=== PATIENT | male | born 1950 | race Caucasian/White ===

== ENCOUNTER 2017-12-27 06:52 | Day surgery (SDC) | payer OTHER, MEDICARE ==
[2017-12-25 09:33] LABS: Absolute Lymphocytes (CBC) 1.7 K/uL (0.7-4.9); Absolute Monocytes 0.6 K/uL (0.1-1.3); Absolute Neutrophil 10.7 K/uL (1.8-8.0); Basophils % 0.2 % (0-1.3); Eosinophils % 1.8 % (0-4.4); Lymphocytes % 12.7 % (15.3-44.8); MCV 88.5 fL (80-100); MPV 7.5 fL (7.6-11.3); Monocytes % 4.6 % (3.3-12.3); RBC Red Blood Cell Count 4.41 M/uL (4.33-5.43)
[2017-12-25 09:47] LABS: Potassium 4.2 mmol/L (3.5-5.1)
[2017-12-25 09:49] LABS: Albumin 2.8 g/dL (3.4-5.0); Bilirubin Direct 0.1 mg/dL (0-0.2); Bilirubin Total 0.3 mg/dL (0.2-1.0); Protein, Total 7.5 g/dL (6.4-8.2)
--- NOTE | 2017-12-25 10:22 | RAD REPORT ---
EXAM DESCRIPTION: RAD - Chest Pa And Lat (2 Views) - 12/25/2017 9:55 am CLINICAL HISTORY: PRE-OP Chest pain. COMPARISON: Chest Single View dated 02/04/2016 FINDINGS: Linear subsegmental atelectasis is present in the left lung base. No focal infiltrate is s een. The heart is normal in size. No displaced fractures. IMPRESSION: Linear subsegmental atelectasis in the left lung base anteriorly.
--- NOTE | 2017-12-26 00:34 | EKG ---
Test Date: 2017-12-25 Test Time: 09:19:11 Stamping Machine Operator: DAPHNE MEASUREMENT RESULTS: Intervals: Rate: 74 ME: 148 QRSD: 94 QT: 400 QTc: 444 [place]: P: 49 ME: 148 QRS: 62 T: 56 INTERPRETIVE STATEMENTS: Normal sinus rhythm Normal ECG No previous ECG available for comparison Electronically Signed On 12-26-17 00:32:16 CDT by Lucho Garay
[2017-12-27] MEDS ORDERED: CIPROFLOXACIN 400mg IV 0 MG/0 ML BAG IV ONE (07:17)
[2017-12-27] MEDS ORDERED: NA CHLORIDE 0.9% 1,000 ML ONE (07:17)
[2017-12-27] MEDS ORDERED: CIPROFLOXACIN 400mg IV 400 MG/200 ML BAG IV ONE (07:17)
[2017-12-27] MEDS ORDERED: PROPOFOL 200 MG/20 ML VIAL IV ONE (08:08)
[2017-12-27] MEDS ORDERED: GLYCOPYRROLATE 0.2 MG/ML SYR ONE (08:08)
[2017-12-27] MEDS ORDERED: MIDAZOLAM HCL 2 MG/2 ML INJ ONE (08:08)
[2017-12-27] MEDS ORDERED: BUPIVACAINE 0.5% PF 10 ML VIAL ONE (08:09)
[2017-12-27] MEDS ORDERED: FENTANYL CITR 250 MCG/5 ML ONE (08:09)
[2017-12-27] MEDS ORDERED: LIDOCAINE 2% MPF 5 ML VIAL ONE (08:09)
[2017-12-27] MEDS ORDERED: ROCURONIUM 50 MG/5 ML VIAL IV ONE (08:09)
--- OUTSIDE RECORDS SUMMARY | 2017-12-27 08:24 | XMS REPORT | Continuity of Care Document ---
:1950 Author Organization Interface Problems Problem Status Onset Classification Date Comments Source Date Reported Discharge 02/07/2016 [facility] Diagnosis: [facility] subdural hematoma Discharge 02/07/2016 [facility] Diagnosis: 6 [facility]ac[facility] hemorrhage, subarachnoid from trauma ICH Active [facility] 6 Medical Center DM (<span Active Problem 02/21/2016 [facility][id number] [facility]Confirmed[facility]spa [place] n[facility] HTN (<span Active Problem 02/21/2016 [id number] [facility]spa [place] n[facility] Obesity Active Problem 02/21/2016 [facility] Medications Medication Details Route Status Patient Ordering Order Source Instructions Provider Date Keppra 500 mg, 1 Inactive [facility] tab, Route: 016 Medical PO, Drug Center form: TAB, BID, kg, Start date: 02/04/16 21:00:00 CDT, Duration: 30 day, Stop date: 03/05/16 9:00:00 CSTNotes: (Same as:Keppra) Saline Flush 10 ml, Inactive [facility] 0.9% Route: IVP, 016 Medical Drug Form: Center INJ, kg, Q12H, Start date: 02/04/16 21:00:00 CDT, Duration: 30 day, Stop date: 03/05/16 9:00:00 NATURAL RESOURCE MANAGER Levetiracetam 500 mg=1 Active [facility] 500 MG Oral tab, PO, 016 Medical Tablet [Keppra] BID, for 7 Center days., # 14 tab, 0 Refill(s) Glucose 50 MG/ML 1,000 mL, Inactive [facility] / Sodium Rate: 100 016 Medical Chloride 0.0769 ml/hr, Center MEQ/ML Infuse over: Injectable 10 hr, Solution Route: IV, Total Volume: 1,000, Start date: 02/04/16 16:42:00 CDT, Duration: 30 day, Stop date: 03/05/16 16:41:00 NATURAL RESOURCE MANAGER Regular Insulin, 3 unit, Inactive [facility] Human 100 UNT/ML Route: 016 Medical Injectable SUB-Q, PRN, Center Solution kg, PRN Abnormal Lab Result, Start date: 02/04/16 16:29:00 CDT, Duration: 30 day, Stop date: 03/05/16 15:28:00 NATURAL RESOURCE MANAGER Dextrose 50% 50 mL, Inactive [facility] Syringe Route: IVP, 016 Medical kg, PRN, PRN Center Abnormal Lab Result, Start date: 02/04/16 16:29:00 CDT, Duration: 30 day, Stop date: 03/05/16 15:28:00 NATURAL RESOURCE MANAGER Ondansetron 4 mg, Route: Inactive [facility] IVP, Q8H, 016 Medical kg, PRN Center Nausea & Vomiting, Start date: 02/04/16 16:29:00 CDT, Duration: 30 day, Stop date: 03/05/16 16:28:00 NATURAL RESOURCE MANAGER Acetaminophen 1 tab, Inactive [place] 325 MG / Route: PO, 016 Medical Hydrocodone kg, Q4H, PRN Center Bitartrate 5 MG Pain Score Oral Tablet 1-3, Start date: 02/04/16 16:29:00 CDT, Duration: 30 day, Stop date: 03/05/16 16:28:00 NATURAL RESOURCE MANAGER Acetaminophen 1 tab, Inactive [facility] 325 MG / Route: PO, 016 Medical Hydrocodone kg, Q4H, PRN Center Bitartrate 10 MG Pain Score Oral Tablet 4-6, Start date: 02/04/16 16:29:00 CDT, Duration: 30 day, Stop date: 03/05/16 16:28:00 NATURAL RESOURCE MANAGER Saline Flush 10 ml, Inactive [facility] 0.9% Route: IVP, 016 Medical Drug Form: Center INJ, kg, PRN, PRN Line Flush, Start date: 02/04/16 16:29:00 CDT, Duration: 30 day, Stop date: 03/05/16 15:28:00 NATURAL RESOURCE MANAGER Levetiracetam 500 mg, Inactive [facility] Route: IVPB, 016 Medical ONCE, kg, Center Start date: 02/04/16 16:29:00 CDT, Stop date: 02/04/16 16:29:00 CDT Sodium Chloride 1,000 mL, Inactive [facility] 0.154 MEQ/ML Rate: 50 016 Medical Injectable ml/hr, [place] Solution Infuse over: 20 hr, Route: IV, Total Volume: 1,000, Start date: 02/04/16 16:29:00 CDT, Duration: 30 day, Stop date: 03/05/16 16:28:00 NATURAL RESOURCE MANAGER Keppra 1,000 mg, Inactive [facility] Route: IV, 016 Medical ONCE, kg, Center Start date: 02/04/16 15:33:00 CDT, Stop date: 02/04/16 15:33:00 CDTNotes: Same as Keppra Mix with 100 mL NS, LR or D5W MEDICATION WASTE Product Size: 500 mg Product Wasted: _0__ mg Allergies, Adverse Reactions, Alerts Substance Category Reaction Severity Reaction Status Date Comments Source type Reported penicillins Assertion Drug Active [facility] allergy [place] Immunizations Immunization Date Given Site Status Last Updated Comments Source Results Order Name Results Value Reference Date Interpretation Comments Source Range Brain wo Brain wo EXAM: CT BRAIN WITHOUT CONTRAST 02/17 - [facility] contrast CT contrast CT /2015 - [place] INDICATION: S06.5X0A Traumatic subdural hemorrhage without loss of consciousness, initial encounter Read by: Jana Toro MD Dictated Date/time: 02/18/16 13:21 Electronically Signed by: Jana Toro MD 02/18/16 13:25 FINAL REPORT COMPARISON: 02/04/2016 TECHNIQUE: Routine axial CT images of the brain were obtained. DISCUSSION: Interval resolution of previously demonstrated trace parafalcine subdural and subarachnoid hemorrhages. No interval new hemorrhage. No mass effect. No acute infarction. No hydrocephalus. Paranasal sinuses and mastoid air cells are clear. IMPRESSION: Interval resolution of previously noted trace extra-axial hemorrhages. No interval new hemorrhage. No hydrocephalus. CHEM PANEL Total 6.8 g/dL 6.4 - 8.4 02/03 [facility] CHEM PANEL Albumin Lvl 3.7 g/dL 3.5 - 5.0 02/03 [facility] CHEM PANEL Bili Total 0.6 mg/dL 0.2 - 1.3 02/03 [facility] CHEM PANEL Alk Phos 77 unit/L 39 - 136 02/03 [facility] CHEM PANEL ALT 47 unit/L 0 - 65 02/03 [facility] CHEM PANEL AST 25 unit/L 0 - 37 02/03 [facility] CHEM PANEL eGFR 45 02/03 Result Comment: The eGFR is calculated using the CKD-EPI formula. In most young, healthy individuals the eGFR will be >90 mL/ min/1.73m2. The eGFR declines with age. An eGFR of 60-89 may be normal in mL/min/1.73 some populations, particularly the elderly, for whom the CKD-EPI formula has not been extensively validated. Use of the eGFR is not recommended in the following populations: [place] [address] [facility] Individuals with unstable creatinine concentrations, including patients and those with serious co-morbid conditions. Patients with extremes in muscle mass or diet. The data above are obtained from the National Kidney Disease Education Program (NKDEP) which additionally recommends that when the eGFR is used in patients with extremes of body mass index for purposes of drug dosing, the eGFR should be multiplied by the estimated BMI. CHEM PANEL Chloride Lvl 109 meq/L 95 - 109 02/03 [facility] CHEM PANEL Potassium 4.4 meq/L 3.5 - 5.1 02/03 [facility] Lvl [facility] CHEM PANEL Calcium Lvl 8.5 mg/dL 8.5 - 10.5 02/03 [facility] CHEM PANEL Sodium Lvl 143 meq/L 135 - 145 02/03 [facility] CHEM PANEL CO2 24 meq/L 24 - 32 02/03 [facility] CHEM PANEL BUN 28 mg/dL 7 - 22 02/03 [facility] CHEM PANEL Creatinine 1.58 mg/dL 0.50 - 02/03 [facility] Lvl 1.40 [facility] CHEM PANEL Glucose Lvl 142 mg/dL 70 - 99 02/03 [facility] CHEM PANEL A/G Ratio 1.2 0.7 - 1.6 02/03 [facility] CHEM PANEL Globulin 3.1 g/dL 2.7 - 4.2 02/03 [facility] CHEM PANEL AGAP 14.4 meq/L 10.0 - 02/03 [place] 20.0 [facility] CHEM PANEL B/C Ratio 18 6 - 25 02/03 [facility] HEMATOLOGY Lymphocytes 1.8 K/CMM 1.0 - 5.5 02/03 [facility] HEMATOLOGY Basophils # 0.1 K/CMM 0.0 - 0.2 02/03 [facility] HEMATOLOGY Eosinophils 0.2 K/CMM 0.0 - 0.5 02/03 [facility] HEMATOLOGY Monocytes # 0.6 K/CMM 0.0 - 0.8 02/03 [facility] HEMATOLOGY Segs 74.9 % 45.0 - 02/03 [place] 75.0 [facility] HEMATOLOGY Lymphocytes 17.5 % 20.0 - 02/03 [place] 40.0 [facility] HEMATOLOGY Segs-Bands # 7.8 K/CMM 1.5 - 8.1 02/03 [facility] HEMATOLOGY Monocytes 5.4 % 2.0 - 12.0 02/03 [facility] HEMATOLOGY Basophils 0.5 % 0.0 - 1.0 02/03 [facility] HEMATOLOGY Eosinophils 1.7 % 0.0 - 4.0 02/03 [facility] HEMATOLOGY MPV 9.1 fL 7.4 - 10.4 02/03 [facility] HEMATOLOGY Platelet 179 K/CMM 133 - 450 02/03 [facility] HEMATOLOGY RDW 13.1 % 11.5 - 02/03 [place] 14.5 [facility] HEMATOLOGY MCH 29.5 pg 27.0 - 02/03 [place] 31.0 [facility] HEMATOLOGY MCHC 33.7 g/dL 32.0 - 02/03 [place] 36.0 [facility] HEMATOLOGY RBC 4.69 M/CMM 4.70 - 02/03 [place] 6. [facility] HEMATOLOGY Hgb 13.8 g/dL 14.0 - 02/03 [place] 18.0 2016 [facility] HEMATOLOGY WBC 10.4 K/CMM 3.7 - 10.4 02/03 [facility] HEMATOLOGY Hct 41.1 % 42.0 - 02/03 [place] 54.0 /2016 [facility] HEMATOLOGY MCV 87.6 fL 80.0 - 02/03 [place] 94.0 /2016 [facility] HEMATOLOGY PT 13.2 s 12.0 - 02/03 [place] 14.7 /2016 [facility] HEMATOLOGY INR 0.98 0.85 - 02/03 [place] 1.17 /2016 [facility] Brain wo Brain wo EXAM: CT BRAIN WITHOUT CONTRAST 02/03 [facility] contrast CT contrast CT /2015 - [facility] INDICATION: Bleeding, transfer for intracranial hemorrhage Read by: Jana Toro MD Dictated Date/time: 02/04/16 16:13 Electronically Signed by: Jana Toro MD 02/04/16 16:19 FINAL REPORT COMPARISON: Exam on the same day from outside hospital TECHNIQUE: Routine axial CT images of the brain were obtained. DISCUSSION: Suggestion of trace parafalcine subdural and subarachnoid hemorrhage is unchanged. No interval new hemorrhage. No mass effect. No hydrocephalus. No acute infarction. No acute fracture. IMPRESSION: Trace parafalcine subdural and adjacent subarachnoid hemorrhages are unchanged. No interval new hemorrhage. No mass effect. Brain-Outsi Brain-Outsid EXAM: CT BRAIN 02/03 [facility] de Consult e Consult CT - [facility] CT Center DATE: 02/04/2016 Read by: Ester Romero MD Dictated Date/time: 02/04/16 15:22 Electronically Signed by: Ester Romero MD 02/04/16 15:24 FINAL REPORT CLINICAL INFORMATION: Outside consult COMPARISON: None TECHNIQUE: Axial images of the brain were obtained from the skull base through the vertex without contrast material administration. DISCUSSION: The density of the brain parenchyma is unremarkable. No hydrocephalus, midline shift or mass effect. No acute hemorrhage. No bony lesions. Trace mucosal thickening within the right maxillary sinus. IMPRESSION: No acute intracranial abnormality. Spine-Outsi Spine-Outsid EXAM: CT CERVICAL SPINE WITHOUT CONTRAST 02/03 [facility] de Consult e Consult CT - [facility] CT This report was dictated by a Wildlife Conservation Officer/Fellow. I have personally reviewed the images as Center well as the Resident's interpretation and agree with the findings. DATE: 02/04/2016 at 0908 hours INDICATION: Second read on side hospital study. Read by: Terrance Morin MD Resident: Terrance Morin MD Dictated Date/time: 02/04/16 16:24 Electronically Signed by: Moy Sorensen MD 02/04/16 17:47 FINAL REPORT COMPARISON: None. TECHNIQUE: Examination performed at outside hospital. FINDINGS: The spine is imaged from the skull base to the level of T2. No acute fracture or malalignment is identified. Low-grade vertebral body hemangiomas seen at the right C7 vertebral body extending partially to the right pedicle. Moderate to severe multilevel disc spa ce narrowing is seen from C3-C6, with large anterior endplate osteophytes at C4-C5 and C5-C6. Small posterior endplate osteophytes are seen at C3-C4, without spinal canal encroachment. No soft tissue abnormality is identified. IMPRESSION: 1. No acute abnormality of the cervical spine. 2. Moderate to severe degenerative disc disease from C3 to C6. 3. Low-grade vertebral body hemangioma at the right C7 vertebral body. 4. The second opinion report generally concurs with the original outside report. Vital Signs Vital Sign Value Date Comments Source Systolic (mm Hg) 154 02/04/2016 [facility] Diastolic (mm Hg) 88 02/04/2016 [facility] Temperature Oral (F) 98.0 F 02/04/2016 [facility] Respitory Rate 16 02/04/2016 [facility] Systolic (mm Hg) 121 02/04/2016 [facility] Diastolic (mm Hg) 71 02/04/2016 [facility] Respitory Rate 20 02/04/2016 [facility] Respitory Rate 18 02/04/2016 [facility] Heart Rate 86 02/04/2016 [facility] Systolic (mm Hg) 158 02/04/2016 [facility] Diastolic (mm Hg) 88 02/04/2016 [facility] Temperature Oral (F) 98.2 F 02/04/2016 [facility] Encounters Location Location Encounter Encounter Reason Attending ADM DC Status Source Details Type Number For Provider Date Date [id number] [id number] TRAUMA 02/17 Active [facility] Out[facility] Diag [id number] [place] 02/17 02/18 [facility] [place] /2015 [facility] Procedures Procedure Code Date Perfomer Comments Source
[2017-12-27] MEDS ORDERED: EPHEDRINE SULF 50 MG/10 ML SYR ONE (08:46)
--- NOTE | 2017-12-27 09:42 | P.BOP ---
Preoperative diagnosis: acute cholecystitis, symptomatic cholelithiasisi Postoperative diagnosis: same Primary procedure: Laparoscopic cholecystectomy Estimated blood loss: <10cc Specimen: gb Findings: as above Anesthesia: General Complications: None Transferred to: Recovery Room Condition: Good
[2017-12-27] MEDS ORDERED: MEPERIDINE HCL 50 MG/ML AMP ONE (10:13)
[2017-12-27] MEDS ORDERED: NA CHLORIDE 0.9% 500 ML ONE (10:13)
[2017-12-27] MEDS ORDERED: CODEINE 30MG/APAP 300MG TAB ONE (11:04)
--- NOTE | 2017-12-27 20:50 | DS ---
Date of Discharge: 12/27/2017 Diagnoses: Acute cholecystitis, symptomatic cholelithiasis. Procedure: Laparoscopic cholecystectomy. Disposition: Home. Activity as tolerated. No heavy lifting. Followup in my office in 1 week. Roly lim for appointment [phone]. Keep the area dry for 48 hours, then may shower, keep the Steri-Strip in tact. For medications, see orders. TRACY/VENKATESH Voice ID: [id number] Report ID: [id number]
--- NOTE | 2017-12-27 20:50 | OP ---
Date of Procedure: 12/27/2017 Surgeon: Canelo Vilchis MD Preoperative Diagnoses: Acute cholecystitis symptomatic cholelithiasis. Postoperative Diagnoses: Acute cholecystitis symptomatic cholelithiasis. Procedure: Laparoscopic cholecystectomy. Anesthesia: General plus local. Indications: This is the case of a male, who comes to us with acute cholecystitis, symptomatic nirmal lithiasis, sent to us by the packing and final assembly supervisor for cholecystectomy. He is still working on a liver cyst and some other pathology by the packing and final assembly supervisor, but they want the gallbladder out. The bene fits, alternatives, and risks of laparoscopic, possible open cholecystectomy fully explained to the p atient, which include but are not limited to infection, bleeding, damage to adjacent structures, anes thesia complication, choledocholithiasis, bile leak, pancreatitis, VT, and even . He also under stands this might not relieve any symptoms. He might need more than one surgical intervention. He u nderstood, signed a consent. Description Of Procedure: The patient was brought to the operating room and placed in the supine pos ition. Anesthesia was done without complication. Abdominal area was prepped and draped in a sterile fashion. Marcaine 0.5% injected for local anesthetic, followed by sharp incision of the skin in the infraumbilical region. Incision was carried down to fascia, which was opened under direct vision. Peritoneum was encountered, opened under direct vision. Vicryl #1 placed inside of the fascia. Alberto on trocar was carefully introduced. Pneumoperitoneum was obtained. After that, 3 more trocars were placed under direct vision in the right upper quadrant. This allowed us to put a grasper in the fund us of the gallbladder, another grasper in the infundibulum, and gallbladder was retracted in the infe rolateral fashion exposing the triangle of Calot and obtaining critical view of safety. The cystic d uct and cystic artery were clearly isolated free circumferentially and a connection between those and the gallbladder were clearly identified. I proceeded to ligate those by using at least 3 clips prox imal, 1 clip distal, ligation in the middle. Same was done with the cystic artery. No bile leak. N o bleeding. The gallbladder was removed from liver using Bovie cauterizer and removed from abdominal cavity using EndoCatch through the umbilical incision. The area was inspected once again. No bile leak. No bleeding. Gallbladder fossa was intact. At that moment, I proceeded to remove the trocars under direct vision. Deflated pneumoperitoneum. Closed the fascia with #1 Vicryl, irrigated the young bcu incision, closed that with 3-0 chromic, and the skin in a subcuticular fashion with 3-0 chromic a nd Steri-Strips on top. Sponge count and instrument counts were correct. The patient tolerated the procedure well. The patient was sent to Recovery in stable condition. TRACY/VENKATESH Voice ID: [id number] Report ID: [id number]
== END 2017-12-27 12:12 | disposition home or self-care (01) ==
LOC: OR 06:52
PROVIDERS: ATTEND Surgery
PROC: 0FT44ZZ Resection of Gallbladder, Percutaneous Endoscopic Approach (ICD-10-PCS; principal; 2017-12-27 08:30)
DX: K80.12 Calculus of gallbladder with acute and chronic cholecystitis without obstruction (principal); K76.89 Other specified diseases of liver; K76.9 Liver disease, unspecified; E11.9 Type 2 diabetes mellitus without complications; I10 Essential (primary) hypertension; E78.00 Pure hypercholesterolemia, unspecified; Z88.0 Allergy status to penicillin; Z82.49 Family history of ischemic heart disease and other diseases of the circulatory system
CPT/HCPCS: 36415; 47562; 71046; 80048; 80076; 82150; 82962 ×2; 83690; 85025; 88304; 93005; J0744; J2175; J2250; J7030

== ENCOUNTER 2018-01-02 15:49 | Observation (INO) | payer OTHER, MEDICARE ==
--- OUTSIDE RECORDS SUMMARY | 2018-01-02 16:14 | XMS REPORT | Continuity of Care Document ---
:1950 Author Organization Interface Problems Problem Status Onset Classification Date Comments Source Date Reported Discharge 02/07/2016 [facility] Diagnosis: 6 [facility] subdural hematoma Discharge 02/07/2016 [facility] Diagnosis: 6 Medical Intracranial Center hemorrhage, subarachnoid from trauma ICH Active [facility] 6 Medical Center DM (<span Active Problem 02/21/2016 [id number] [facility]Confirmed[facility]spa [place] n[facility] HTN (<span Active Problem 02/21/2016 [id number] [facility]a [place] n[facility] Obesity Active Problem 02/21/2016 OP[facility] Romero Medications Medication Details Route Status Patient Ordering Order Source Instructions Provider Date Keppra 500 mg, 1 Inactive [facility] tab, Route: 016 Medical PO, Drug Center form: TAB, BID, kg, Start date: 02/04/16 21:00:00 CDT, Duration: 30 day, Stop date: 03/05/16 9:00:00 CSTNotes: (Same as:Keppra) Saline Flush 10 ml, Inactive [facility] 0.9% Route: IVP, 016 Medical Drug Form: Center INJ, kg, Q12H, Start date: 02/04/16 21:00:00 CDT, Duration: 30 day, Stop date: 03/05/16 9:00:00 GUEST EXPERIENCE MANAGER Levetiracetam 500 mg=1 Active [facility] 500 MG Oral tab, PO, 016 Medical Tablet [Keppra] BID, for 7 Center days., # 14 tab, 0 Refill(s) Glucose 50 MG/ML 1,000 mL, Inactive [facility] / Sodium Rate: 100 016 Medical Chloride 0.0769 ml/hr, Center MEQ/ML Infuse over: Injectable 10 hr, Solution Route: IV, Total Volume: 1,000, Start date: 02/04/16 16:42:00 CDT, Duration: 30 day, Stop date: 03/05/16 16:41:00 GUEST EXPERIENCE MANAGER Regular Insulin, 3 unit, Inactive [facility] Human 100 UNT/ML Route: 016 Medical Injectable SUB-Q, PRN, Center Solution kg, PRN Abnormal Lab Result, Start date: 02/04/16 16:29:00 CDT, Duration: 30 day, Stop date: 03/05/16 15:28:00 GUEST EXPERIENCE MANAGER Dextrose 50% 50 mL, Inactive [facility] Syringe Route: IVP, 016 Medical kg, PRN, PRN Center Abnormal Lab Result, Start date: 02/04/16 16:29:00 CDT, Duration: 30 day, Stop date: 03/05/16 15:28:00 GUEST EXPERIENCE MANAGER Ondansetron 4 mg, Route: Inactive [facility] IVP, Q8H, 016 Medical kg, PRN Center Nausea & Vomiting, Start date: 02/04/16 16:29:00 CDT, Duration: 30 day, Stop date: 03/05/16 16:28:00 GUEST EXPERIENCE MANAGER Acetaminophen 1 tab, Inactive [place] 325 MG / Route: PO, 016 Medical Hydrocodone kg, Q4H, PRN Center Bitartrate 5 MG Pain Score Oral Tablet 1-3, Start date: 02/04/16 16:29:00 CDT, Duration: 30 day, Stop date: 03/05/16 16:28:00 GUEST EXPERIENCE MANAGER Acetaminophen 1 tab, Inactive [facility] 325 MG / Route: PO, 016 Medical Hydrocodone kg, Q4H, PRN Center Bitartrate 10 MG Pain Score Oral Tablet 4-6, Start date: 02/04/16 16:29:00 CDT, Duration: 30 day, Stop date: 03/05/16 16:28:00 GUEST EXPERIENCE MANAGER Saline Flush 10 ml, Inactive [facility] 0.9% Route: IVP, 016 Medical Drug Form: Center INJ, kg, PRN, PRN Line Flush, Start date: 02/04/16 16:29:00 CDT, Duration: 30 day, Stop date: 03/05/16 15:28:00 GUEST EXPERIENCE MANAGER Levetiracetam 500 mg, Inactive [facility] Route: IVPB, 016 Medical ONCE, kg, Center Start date: 02/04/16 16:29:00 CDT, Stop date: 02/04/16 16:29:00 CDT Sodium Chloride 1,000 mL, Inactive [facility] 0.154 MEQ/ML Rate: 50 016 Medical Injectable ml/hr, [place] Solution Infuse over: 20 hr, Route: IV, Total Volume: 1,000, Start date: 02/04/16 16:29:00 CDT, Duration: 30 day, Stop date: 03/05/16 16:28:00 GUEST EXPERIENCE MANAGER Keppra 1,000 mg, Inactive [facility] Route: IV, 016 Medical ONCE, kg, Center Start date: 02/04/16 15:33:00 CDT, Stop date: 02/04/16 15:33:00 CDTNotes: Same as Keppra Mix with 100 mL NS, LR or D5W MEDICATION WASTE Product Size: 500 mg Product Wasted: _0__ mg Allergies, Adverse Reactions, Alerts Substance Category Reaction Severity Reaction Status Date Comments Source type Reported penicillins Assertion Drug Active [facility] allergy [place] Immunizations Immunization Date Given Site Status Last Updated Comments Source Results Order Name Results Value Reference Date Interpretation Comments Source Range Brain wo Brain wo EXAM: CT BRAIN WITHOUT CONTRAST 02/17 - [facility] contrast CT contrast CT /2015 - [facility] INDICATION: S06.5X0A Traumatic subdural hemorrhage without loss [...] Total 6.8 g/dL 6.4 - 8.4 02/03 [facility] CHEM PANEL Albumin Lvl 3.7 g/dL 3.5 - 5.0 02/03 [facility] CHEM PANEL Bili Total 0.6 mg/dL 0.2 - 1.3 02/03 [facility] CHEM PANEL Alk Phos 77 unit/L 39 - 136 02/03 [facility] CHEM PANEL ALT 47 unit/L 0 - 65 02/03 [facility] CHEM PANEL AST 25 unit/L 0 - 37 02/03 [facility] CHEM PANEL eGFR 45 02/03 Result [...] is not recommended in the following populations: [place] [id number] Center Individuals with unstable creatinine concentrations, including [...] Lvl 109 meq/L 95 - 109 02/03 [facility] CHEM PANEL Potassium 4.4 meq/L 3.5 - 5.1 02/03 [facility] Lvl [facility] CHEM PANEL Calcium Lvl 8.5 mg/dL 8.5 - 10.5 02/03 [facility] CHEM PANEL Sodium Lvl 143 meq/L 135 - 145 02/03 [facility] CHEM PANEL CO2 24 meq/L 24 - 32 02/03 [facility] CHEM PANEL BUN 28 mg/dL 7 - 22 02/03 [facility] CHEM PANEL Creatinine 1.58 mg/dL 0.50 - 02/03 [facility] Lvl 1.40 [facility] CHEM PANEL Glucose Lvl 142 mg/dL 70 - 99 02/03 [facility] CHEM PANEL A/G Ratio 1.2 0.7 - 1.6 02/03 [facility] CHEM PANEL Globulin 3.1 g/dL 2.7 - 4.2 02/03 [facility] CHEM PANEL AGAP 14.4 meq/L 10.0 - 02/03 [place] 20.0 [facility] CHEM PANEL B/C Ratio 18 6 - 25 02/03 [facility] HEMATOLOGY Lymphocytes 1.8 K/CMM 1.0 - 5.5 02/03 [facility] HEMATOLOGY Basophils # 0.1 K/CMM 0.0 - 0.2 02/03 [facility] HEMATOLOGY Eosinophils 0.2 K/CMM 0.0 - 0.5 02/03 [facility] HEMATOLOGY Monocytes # 0.6 K/CMM 0.0 - 0.8 02/03 [facility] HEMATOLOGY Segs 74.9 % 45.0 - 02/03 [place] 75.0 [facility] HEMATOLOGY Lymphocytes 17.5 % 20.0 - 02/03 [place] 40.0 [facility] HEMATOLOGY Segs-Bands # 7.8 K/CMM 1.5 - 8.1 02/03 [facility] HEMATOLOGY Monocytes 5.4 % 2.0 - 12.0 02/03 [facility] HEMATOLOGY Basophils 0.5 % 0.0 - 1.0 02/03 [facility] HEMATOLOGY Eosinophils 1.7 % 0.0 - 4.0 02/03 [facility] HEMATOLOGY MPV 9.1 fL 7.4 - 10.4 02/03 [facility] HEMATOLOGY Platelet 179 K/CMM 133 - 450 02/03 [facility] HEMATOLOGY RDW 13.1 % 11.5 - 02/03 [place] 14.5 [facility] HEMATOLOGY MCH 29.5 pg 27.0 - 02/03 [place] 31.0 [facility] HEMATOLOGY MCHC 33.7 g/dL 32.0 - 02/03 [place] 36.0 [facility] HEMATOLOGY RBC 4.69 M/CMM 4.70 - 02/03 [place] 6. [facility] HEMATOLOGY Hgb 13.8 g/dL 14.0 - 02/03 [place] 18.0 2016 [facility] HEMATOLOGY WBC 10.4 K/CMM 3.7 - 10.4 02/03 [facility] HEMATOLOGY Hct 41.1 % 42.0 - 02/03 [place] 54.0 /2016 [facility] HEMATOLOGY MCV 87.6 fL 80.0 - 02/03 [place] 94.0 /2016 [facility] HEMATOLOGY PT 13.2 s 12.0 - 02/03 [place] 14.7 /2016 [facility] HEMATOLOGY INR 0.98 0.85 - 02/03 [place] 1.17 /2016 [facility] Brain wo Brain wo EXAM: CT BRAIN WITHOUT CONTRAST 02/03 [facility] contrast CT contrast CT /2015 - [facility] INDICATION: Bleeding, transfer for intracranial hemorrhage [...] effect. Brain-Outsi Brain-Outsid EXAM: CT BRAIN 02/03 [facility] de Consult e Consult CT - [facility] CT Center DATE: 02/04/2016 Read by: [...] EXAM: CT CERVICAL SPINE WITHOUT CONTRAST 02/03 [facility] de Consult e Consult CT - [facility] CT This report was dictated by a Solar Systems Designer/Fellow. I have personally reviewed the images as [...] Comments Source Systolic (mm Hg) 154 02/04/2016 [facility] Diastolic (mm Hg) 88 02/04/2016 [facility] Temperature Oral (F) 98.0 F 02/04/2016 [facility] Respitory Rate 16 02/04/2016 [facility] Systolic (mm Hg) 121 02/04/2016 [facility] Diastolic (mm Hg) 71 02/04/2016 [facility] Respitory Rate 20 02/04/2016 [facility] Respitory Rate 18 02/04/2016 [facility] Heart Rate 86 02/04/2016 [facility] Systolic (mm Hg) 158 02/04/2016 [facility] Diastolic (mm Hg) 88 02/04/2016 [facility] Temperature Oral (F) 98.2 F 02/04/2016 [facility] Encounters Location Location Encounter Encounter Reason Attending ADM DC Status Source Details Type Number For Provider Date Date [facility] [id number] [id number] TRAU[place] 02/17 Active [facility] Out[facility] Diag [id number] Abdifatah 02/17 02/18 [facility] [place] [facility] Procedures Procedure Code Date Perfomer Comments Source
[2018-01-02] MEDS ORDERED: ACETAMINOPHEN 500 MG TAB PO PRN (16:38)
[2018-01-02] MEDS ORDERED: ONDANSETRON 4 MG/2 ML VIAL IV PRN (16:38)
[2018-01-02] MEDS ORDERED: PIPER/TAZO/NS 3.375gm 3.375 GM/100 ML BAG IV SCH (17:00)
[2018-01-02] MEDS ORDERED: ENOXAPARIN 40 MG/0.4 ML SQ SCH (17:00)
--- NOTE | 2018-01-02 17:14 | P.HP ---
Certification for Inpatient Patient admitted to: Observation With expected LOS: <2 Midnights Patient will require the following post-hospital care: None Practitioner: I am a practitioner with admitting privileges, knowledge of patient current condition, hospital course, and medical plan of care. Services: Services provided to patient in accordance with Admission requirements found in Title 42 Section 412.3 of the Code of Federal Regulations Patient History Date of Service: 01/02/18 Primary Care Provider: Unknown Reason for admission: Possible Aspiration PNA History of Present Illness: 64 y/o M with H/o HTN, HLP and Type 2 DM who was directly admitted to the hospital by GI post colonoscopy. Pt had colonscopy done and aspirated on self post procedure. Pt was initially SOB and had oxygen saturation <80% on 2L NC. He was thus Admitted for possible Aspiration PNA and SOB. Pt did have 4 polyp removed and tolerated the procedure well untill he had vomiting post procedure. No other complains to offer at this time. Pt was recently discharged from hospital after having Lap nirmal by Dr Vilchis Allergies Penicillins Allergy (Verified 01/02/18 17:05) childhood reaction unknown Home Medications: Aspirin [Aspirin EC 81 MG] 81 mg PO DAILY 12/26/17 Atorvastatin Calcium [Lipitor] 20 mg PO BEDTIME 12/26/17 Cholecalciferol (Vitamin D3) [Vitamin D 1000 Iu Tab] 2,000 unit PO DAILY Fish Oil/Dha/Epa [Fish Oil 1,200 mg Fish Oil] 1 each PO BID 12/26/17 Glipizide [Glipizide ER] 10 mg PO BID 12/26/17 Levofloxacin [Levaquin] 500 mg PO DAILY 12/26/17 Metformin HCl [Glucophage] 500 mg PO BIDWM 12/26/17 Metoprolol Tartrate [Lopressor] 50 mg PO BID 12/26/17 Omeprazole [Prilosec] 40 mg PO DAILY 12/26/17 Terazosin HCl [Hytrin] 1 mg PO BID 12/26/17 Vit A/Vit C/Vit E/Zinc/Copper [Icaps Areds Formula Tablet] 1 each PO BID Ciprofloxacin HCl [Cipro 500 MG Tablet] 500 mg PO BID #10 tab 12/27/17 Codeine/APAP [Tylenol W/Codeine #3 tab] 1 tab PO Q4HP PRN #30 tab 12/27/17 Review of Systems 10-point ROS is otherwise unremarkable Physical Examination - Physical Exam General: Alert, In no apparent distress HEENT: Atraumatic, PERRLA, Mucous membr. moist/pink, EOMI, Sclerae nonicteric Neck: Supple, 2+ carotid pulse no bruit, No LAD, Without JVD or thyroid abnormality Respiratory: Clear to auscultation bilaterally, Normal air movement Cardiovascular: Regular rate/rhythm, Normal S1 S2 Gastrointestinal: Normal bowel sounds, No tenderness Musculoskeletal: No tenderness Integumentary: No rashes Neurological: Normal gait, Normal speech, Normal strength at 5/5 x4 extr, Normal tone, Normal affect Lymphatics: No axilla or inguinal lymphadenopathy Assessment and Plan - Plan Assessment and plan: 1. Possible Aspiration PNA post Colonoscopy - IV clindamycin for now - Will get CBC, CMP, Xray of the chest - Will f.u with lab and imaging 2. S.P Colonoscopy - Stable, - S/p 4 Polypectomy - Monitor H.H 3. HTN 4. HLP 5. Type 2 DM Dispo: Admit to medical surgical for 24hrs Observation Discharge Plan: Home Plan to discharge in: 24 Hours - Advance Directives Does patient have a Living Will: No Does patient have a Durable POA for Healthcare: No - Code Status/Comfort Care Code Status Assessed: Yes Critical Care: No
[2018-01-02] MEDS ORDERED: D50W 25 GM/50 ML SYRINGE IV PRN (17:16)
[2018-01-02] MEDS ORDERED: GLUCAGON 1 MG/VIAL IM PRN (17:16)
--- NOTE | 2018-01-02 17:34 | RAD REPORT ---
EXAM DESCRIPTION: Yazimn Single View01/02/2018 5:22 pm CLINICAL HISTORY: Chest pain COMPARISON: December 25, 2017 FINDINGS: Alveolar opacities have developed within the left lung base. Mild medial right basilar opa cities are suspected The heart is normal size IMPRESSION: Left basilar alveolar opacities with mild opacities in the medial right base consistent with pneumonia/aspiration
[2018-01-02] MEDS: CLINDAMYCIN INJ 600 MG in NA CHLORIDE 0.9% 50 ML IV SCH (18:13)
[2018-01-02] MEDS: NA CHLORIDE 0.9% 1,000 ML IV SCH ×2 (18:13→20:53)
[2018-01-02] MEDS: PANTOPRAZOLE 40MG TABLET PO SCH (18:13)
[2018-01-02 18:19] LABS: Albumin 3.1 g/dL (3.4-5.0); Bilirubin Total 0.4 mg/dL (0.2-1.0); Potassium 4.1 mmol/L (3.5-5.1); Protein, Total 7.5 g/dL (6.4-8.2)
[2018-01-02 18:21] LABS: Absolute Lymphocytes (CBC) 0.7 K/uL (0.7-4.9); Absolute Monocytes 1.1 K/uL (0.1-1.3); Absolute Neutrophil 26.2 K/uL (1.8-8.0); Basophils % 0.2 % (0-1.3); Eosinophils % 0.5 % (0-4.4); Hematocrit 41.3 % (39.6-49.0); Lymphocytes % 2.6 % (15.3-44.8); MCH 29.1 pg (27.0-35.0); MCV 87.6 fL (80-100); MPV 8.1 fL (7.6-11.3); Monocytes % 3.9 % (3.3-12.3); RBC Red Blood Cell Count 4.71 M/uL (4.33-5.43)
[2018-01-02 19:09] LABS: Blood Morphology Comment NOT SEEN (NOT SEEN); Platelet Estimate ADEQ; Toxic Granulation 1+
[2018-01-02] MEDS: INSULIN -REGULAR HUMAN 50 UNIT/0.5 ML ML SQ SCH (20:36)
[2018-01-02] MEDS: ATORVASTATIN 20 MG TAB PO SCH (20:50)
[2018-01-02] MEDS: METOPROLOL TAR 50 MG TAB PO SCH (20:51)
[2018-01-02] MEDS: TERAZOSIN HCL 1 MG CAP PO SCH (20:52)
[2018-01-02] MEDS ORDERED: PNEUMOCOCCAL VACCINE 0.5 ML IMVAC ONE (21:00)
[2018-01-03] MEDS: CLINDAMYCIN INJ 600 MG in NA CHLORIDE 0.9% 50 ML IV SCH ×2 (00:12→09:00)
[2018-01-03 05:19] LABS: Absolute Lymphocytes (CBC) 1.5 K/uL (0.7-4.9); Absolute Neutrophil 19.1 K/uL (1.8-8.0); Basophils % 0.1 % (0-1.3); Eosinophils % 0.3 % (0-4.4); Hematocrit 34.8 % (39.6-49.0); MCH 29.7 pg (27.0-35.0); MCV 86.5 fL (80-100); MPV 8.4 fL (7.6-11.3); Monocytes % 4.5 % (3.3-12.3); RBC Red Blood Cell Count 4.02 M/uL (4.33-5.43)
[2018-01-03 05:46] LABS: Albumin 2.7 g/dL (3.4-5.0); Bilirubin Total 0.5 mg/dL (0.2-1.0); Magnesium 2.1 mg/dL (1.8-2.4); Phosphorus 4.9 mg/dL (2.5-4.9); Potassium 3.9 mmol/L (3.5-5.1); Protein, Total 6.5 g/dL (6.4-8.2)
[2018-01-03] MEDS ORDERED: POTASSIUM 25 MEQ EFFERV TAB PO ONE (07:05)
[2018-01-03] MEDS: PANTOPRAZOLE 40MG TABLET PO SCH (07:30)
[2018-01-03] MEDS: INSULIN -REGULAR HUMAN 50 UNIT/0.5 ML ML SQ SCH ×4 (07:30→21:00)
[2018-01-03] MEDS: METOPROLOL TAR 50 MG TAB PO SCH ×2 (09:00→20:43)
[2018-01-03] MEDS ORDERED: HOME MED 1 EA UNK (Omeprazole [Prilosec] 40 MG) PO SCH (09:00)
[2018-01-03] MEDS: ASPIRIN EC 81 MG TAB PO SCH (09:00)
[2018-01-03] MEDS: VITAMIN D 1000 UNIT TAB PO SCH (09:00)
[2018-01-03] MEDS: TERAZOSIN HCL 1 MG CAP PO SCH ×2 (09:00→20:44)
--- NOTE | 2018-01-03 12:34 | RAD REPORT ---
EXAM DESCRIPTION: CT - Abdomen W/Wo Contrast - 01/03/2018 11:01 am CLINICAL HISTORY: Abnormal liver function, abdominal pain, recent colonoscopy and cholecystectomy, h istory of focal liver lesion from 1 year earlier. There is no report, imaging or other finding detail in the liver abnormality. COMPARISON: None. TECHNIQUE: Precontrast 5 millimeter thick images of the abdomen were obtained. During dynamic enhanc ement using nonionic IV contrast, axial 5 millimeter thick images of the abdomen were obtained. Delay ed imaging of the abdomen. No oral contrast administered. FINDINGS: Left lung base scarring changes are present. There is some minimal patchy opacification in the left lung base that is not fully assessed. A minimal component of infiltrate cannot be excluded. This may all be chronic disease. No pericardial thickening or effusion. No pleural effusion or pleur al thickening. There is a small Bochdalek's hernia. Liver size is normal. No liver calcifications or capsular nodularity seen. In the central right lobe of the liver there is an 18 millimeter round low-density mass. Attenuation values range between 4-12 Hounsfield units on the precontrast, enhanced and delayed sequencing. No peripheral enhancement. No c entral enhancement confirmed. No other liver lesion identifiable. It is uncertain if this is the lesi on in question. Findings strongly favor a benign cyst etiology. Spleen is normal in size. A few splenic granulomatous calcifications are present. No focal splenic le neal. Cholecystectomy clips are present. Minimal fluid or stranding at the gallbladder fossa. No bili bernard tree dilatation. No solid or cystic mass of the pancreas identified. There is congestion or stranding adjacent to the fat of the head and body of the pancreas. There is a slightly edematous or shaggy appearance to the w alls of the gastric antrum, duodenal bulb and proximal duodenal C-loop. Minimal amount of fluid or st randing is seen superiorly between the gastrohepatic ligament and the iveth of the diaphragm. Punctate nonobstructing calculus seen in the upper pole right kidney with a 6 x 2 mm calcification in the mid right kidney and a 3 mm calcification lower pole. No hydronephrosis of either kidney. Left k idney is much smaller than the right. Stranding is seen in the left perinephric fat. No suspicious so lid or cystic mass of either kidney. Left renal function may be slightly delayed relative to the righ t. Other than the antrum finding, barakat of the stomach are unremarkable. No acute small bowel finding. P rominent diverticulosis seen in the imaged portions of the colon. Primary colon process not suspected . No free air or free fluid. No bulky lymphadenopathy. IMPRESSION: Mild edema and stranding surrounds the pancreatic head and body with low-density strandi ng extending superiorly towards the gastrohepatic ligament. Mild wall thickening and edema of the gastric antrum, duodenal bulb and proximal C-loop. Minimal fluid in stranding in the gallbladder fossa with cholecystectomy clips present. No biliary tr ee dilatation. The above detailed findings are potentially all secondary to the recent cholecystectomy. Mild pancrea titis and a mild antritis/duodenitis process could also be present and this needs correlation with cl inical presentation and laboratory findings. No abscess, free air or surgically emergent finding. An 18 millimeter round low-density mass in the central right lobe of the liver shows findings most co nsistent with an incidental cyst. It is uncertain if this represents the lesion detailed in the histo ry. Currently no suspicious liver finding identified. Cortical thinning and volume loss of the left kidney. There are bilateral nonobstructing calculi. An acute process is not suspected.
--- NOTE | 2018-01-03 13:41 | P.PN ---
Subjective Date of Service: 01/03/18 Primary Care Provider: Unknown Chief Complaint: Possible Aspiration PNA Pt seen and examined at bedside. Chart Reviewed. Case DW with GI and family at bedside. Pt denies having N/V/D or abd pain at this time. Breathing well . Review of Systems 10-point ROS is otherwise unremarkable Physical Examination - Vital Signs Temperature: 96.9 F Blood Pressure: 121/68 Pulse: 71 Respirations: 18 Pulse Ox (%): 95 - Physical Exam General: Alert, In no apparent distress HEENT: Atraumatic, PERRLA, EOMI Neck: Supple, JVD not distended Respiratory: Clear to auscultation bilaterally, Normal air movement Cardiovascular: Regular rate/rhythm, Normal S1 S2 Gastrointestinal: Normal bowel sounds, No tenderness Musculoskeletal: No tenderness Integumentary: No rashes Neurological: Normal speech, Normal tone, Normal affect Lymphatics: No axilla or inguinal lymphadenopathy - Studies Laboratory Data (last 24 hrs) 01/03/18 04:36: Sodium 141, Potassium 3.9, BUN 21 H, Creatinine 1.50 H, Glucose 126 H, Phosphorus 4.9, Magnesium 2.1, Total Bilirubin 0.5, AST 19, ALT 34, Alkaline Phosphatase 105 01/03/18 04:36: Sodium Cancelled, Potassium Cancelled, BUN Cancelled, Creatinine Cancelled, Glucose Cancelled, Total Bilirubin Cancelled, AST Cancelled, ALT Cancelled, Alkaline Phosphatase Cancelled 01/03/18 04:36: WBC 21.7 H* D, Hgb 11.9 L, Hct 34.8 L D, Plt Count 288 01/02/18 17:45: Sodium 140, Potassium 4.1, BUN 20 H, Creatinine 1.70 H, Glucose 164 H, Total Bilirubin 0.4, AST 26, ALT 42, Alkaline Phosphatase 120 H 01/02/18 17:45: WBC 28.2 H* D, Hgb 13.7, Hct 41.3, Plt Count 342 D Medications List Reviewed: Yes Assessment And Plan - Plan Assessment and plan: 1. Possible Aspiration PNA post Colonoscopy - IV levaquin and Flagyl for now - WBC elevated with negative Procal. - Xray negative for acute process 2. S.P Colonoscopy - Stable, - S/p 4 Polypectomy - Monitor H.H 3. HTN 4. HLP 5. Type 2 DM 6. Leukocytosis - Most Likely reactive -Will continue abx and monitor closely 7. Possible liver lesion -ABD CT Negative for acute finding except thickening of the antrum and colon area. -Finding consistent with post Kimberly and colonoscopy patient. Dispo: Awaiting Clinical Improvement. Will observe for next 24hr for improvement with WBC. Discharge Plan: Home Plan to discharge in: 24 Hours - Code Status/Comfort Care Code Status Assessed: Yes Critical Care: No
[2018-01-03] MEDS ORDERED: Levofloxacin500mg IV 500 MG/100 ML BAG IV SCH (14:00)
[2018-01-03] MEDS: NA CHLORIDE 0.9% 1,000 ML IV SCH (14:47)
[2018-01-03] MEDS: METRONIDAZOLE 500mg IVPB 500 MG/100 ML BAG IV SCH (16:44)
[2018-01-03] MEDS: ATORVASTATIN 20 MG TAB PO SCH (20:43)
[2018-01-04] MEDS: METRONIDAZOLE 500mg IVPB 500 MG/100 ML BAG IV SCH ×2 (01:10→08:57)
[2018-01-04] MEDS: NA CHLORIDE 0.9% 1,000 ML IV SCH ×2 (01:12→09:00)
[2018-01-04 05:07] LABS: Absolute Lymphocytes (CBC) 1.5 K/uL (0.7-4.9); Absolute Monocytes 0.7 K/uL (0.1-1.3); Absolute Neutrophil 8.8 K/uL (1.8-8.0); Basophils % 0.2 % (0-1.3); Eosinophils % 2.1 % (0-4.4); Hematocrit 34.1 % (39.6-49.0); Lymphocytes % 13.1 % (15.3-44.8); MCV 86.5 fL (80-100); MPV 7.9 fL (7.6-11.3); Monocytes % 6.1 % (3.3-12.3); RBC Red Blood Cell Count 3.94 M/uL (4.33-5.43)
[2018-01-04 05:29] LABS: Albumin 2.5 g/dL (3.4-5.0); Bilirubin Total 0.4 mg/dL (0.2-1.0); Potassium 4.2 mmol/L (3.5-5.1); Protein, Total 6.1 g/dL (6.4-8.2)
[2018-01-04] MEDS: INSULIN -REGULAR HUMAN 50 UNIT/0.5 ML ML SQ SCH ×2 (07:30→11:43)
[2018-01-04] MEDS: ASPIRIN EC 81 MG TAB PO SCH (08:56)
[2018-01-04] MEDS: METOPROLOL TAR 50 MG TAB PO SCH (08:56)
[2018-01-04] MEDS: VITAMIN D 1000 UNIT TAB PO SCH (08:57)
[2018-01-04] MEDS: PANTOPRAZOLE 40MG TABLET PO SCH (08:57)
[2018-01-04] MEDS: TERAZOSIN HCL 1 MG CAP PO SCH (09:00)
--- NOTE | 2018-01-04 12:56 | P.SSS ---
Patient History Date of Service: 01/04/18 Primary Care Provider: Unknown Reason for admission: Possible Aspiration PNA History of Present Illness: 64 y/o M with H/o HTN, HLP and Type 2 DM who was directly admitted to the hospital by GI post colonoscopy. Pt had colonscopy done and aspirated on self post procedure. Pt was initially SOB and had oxygen saturation <80% on 2L NC. He was thus Admitted for possible Aspiration PNA and SOB. Pt did have 4 polyp removed and tolerated the procedure well untill he had vomiting post procedure. No other complains to offer at this time. Pt was recently discharged from hospital after having Lap nirmal by Dr Vilchis Allergies Penicillins Allergy (Verified 01/02/18 17:05) childhood reaction unknown Home Medications: Aspirin [Aspirin EC 81 MG] 81 mg PO DAILY 12/26/17 Atorvastatin Calcium [Lipitor] 20 mg PO BEDTIME 12/26/17 Cholecalciferol (Vitamin D3) [Vitamin D 1000 Iu Tab] 2,000 unit PO DAILY Glipizide [Glipizide ER] 10 mg PO BID 12/26/17 Metformin HCl [Glucophage] 500 mg PO BIDWM 12/26/17 Metoprolol Tartrate [Lopressor] 50 mg PO BID 12/26/17 Omeprazole [Prilosec] 40 mg PO DAILY 12/26/17 Terazosin HCl [Hytrin] 1 mg PO BID 12/26/17 - Past Medical/Surgical History Has patient received pneumonia vaccine in the past: No Diabetic: Yes -: DM -: high cholesterol -: high blood pressure -: GERD -: gall bladder removal -: tonsilectomy -: colonoscopy - Family History Mother Notes: brain aneruism Father -: Hypertension - Social History Smoking Status: Never smoker Alcohol use: No CD- Drugs: No Caffeine use: Yes Place of Residence: Home Review of Systems 10-point ROS is otherwise unremarkable Physical Examination - Vital Signs Temperature: 97.4 F Blood Pressure: 128/79 Pulse: 70 Respirations: 16 Pulse Ox (%): 96 - Physical Exam General: Alert, In no apparent distress HEENT: Atraumatic, PERRLA, Mucous membr. moist/pink, EOMI, Sclerae nonicteric Neck: Supple, 2+ carotid pulse no bruit, No LAD, Without JVD or thyroid abnormality Respiratory: Clear to auscultation bilaterally, Normal air movement Cardiovascular: Regular rate/rhythm, Normal S1 S2 Gastrointestinal: Normal bowel sounds, No tenderness Musculoskeletal: No tenderness Integumentary: No rashes Neurological: Normal gait, Normal speech, Normal strength at 5/5 x4 extr, Normal tone, Normal affect Lymphatics: No axilla or inguinal lymphadenopathy - Studies Laboratory Data (last 24 hrs) 01/04/18 04:35: Sodium 141, Potassium 4.2, BUN 18, Creatinine 1.30, Glucose 131 H, Total Bilirubin 0.4, AST 15, ALT 28, Alkaline Phosphatase 98 01/04/18 04:35: WBC 11.2 H D, Hgb 11.8 L, Hct 34.1 L, Plt Count 252 Treatment Summary: Discharge diagnosis 1. Aspiration pneumonia 2. Status post colonoscopy 3. Hypertension Hospital Course Overall during the course of the hospital stay patient remained stable. Patient was admitted to the hospital for aspiration pneumonia post colonoscopy. Patient had colonoscopy done and the outpatient center after which she was in the PACU where he had several bouts of vomiting where he threw up bile and what looked like was aspirated some as well. When patient was initially admitted his white count was elevated and chest x-ray was concerning for pneumonia. Patient was started on IV Zosyn here in the hospital had marked improvement in his symptoms with declining white blood cells and improvement in his breathing status as well. Patient then was discharged home under stable condition was switched over to p.o. antibiotics. Patient was given Augmentin by his GI doctor and was asked to continue taking that for aspiration pneumonia as well. Patient was asked to follow up with his primary care provider in about 1-2 days post discharge as well. - Disposition Disposition: ROUTINE DISCHARGE Condition: GOOD Patient Discharge Instructions: Please f.u with PCP and GI in 1 to 2 days post discharge. New medication. Augmentin Diet: Regular Activity: Ad zora
[2018-01-04] MEDS ORDERED: PNEUMOCOCCAL VACCINE 0.5 ML IMVAC ONE (13:00)
== END 2018-01-04 12:28 | disposition home or self-care (01) ==
LOC: 2ND 16:11
PROVIDERS: ADMIT Family Medicine; ATTEND Family Medicine
DX: J95.89 Other postprocedural complications and disorders of respiratory system, not elsewhere classified (principal); J69.0 Pneumonitis due to inhalation of food and vomit; Y83.8 Other surgical procedures as the cause of abnormal reaction of the patient, or of later complication, without mention of misadventure at the time of the procedure; Y92.531 Health care provider office as the place of occurrence of the external cause; I10 Essential (primary) hypertension; E11.9 Type 2 diabetes mellitus without complications; E78.00 Pure hypercholesterolemia, unspecified; Z23 Encounter for immunization; Z79.82 Long term (current) use of aspirin; Z88.0 Allergy status to penicillin
CPT/HCPCS: 36415 ×3; 71045; 74170; 80053 ×3; 82962 ×7; 83735; 84100; 84145; 85025 ×3; 87040 ×2; 90670; 94760 ×6; G0009; G0378; G0379; J7030 ×4; Q9967; J2543

== ENCOUNTER 2021-10-21 10:20 | Observation (INO) | payer OTHER ==
[2021-10-21] MEDS ORDERED: ONDANSETRON 4 MG/2 ML VIAL IV PRN (14:00)
[2021-10-21] MEDS ORDERED: ACETAMINOPHEN 325 MG TABLET PO PRN (14:00)
[2021-10-21] MEDS ORDERED: PNEUMOCOCCAL VACCINE 0.5 ML IMVAC ONE (14:00)
[2021-10-21] MEDS ORDERED: LOPERAMIDE HCL 2 MG CAPSULE PO PRN (14:00)
[2021-10-21] MEDS ORDERED: DIPHENHYDRAMINE 25 MG TAB/CAP PO PRN (14:00)
[2021-10-21] MEDS ORDERED: NACHLORIDE 0.45% 1,000 ML IV SCH (14:00)
[2021-10-21] MEDS ORDERED: ONDANSETRON 4 MG (ODT) TAB PO PRN (14:00)
[2021-10-21] MEDS ORDERED: POLYETHYL GLY 3350 17 GM/DOSE PO PRN (14:00)
[2021-10-21] MEDS ORDERED: D50W 25 GM/50 ML SYRINGE IV PRN (14:01)
[2021-10-21] MEDS ORDERED: GLUCAGON 1 MG/VIAL IM PRN (14:01)
[2021-10-21] MEDS ORDERED: DEXTROSE 10%-WATER 500 ML IV BAG IV PRN (14:22)
[2021-10-21 14:24] VITALS: BMI 31.1
--- NOTE | 2021-10-21 15:23 | RAD REPORT ---
EXAM DESCRIPTION: Yazmin Avery (2 Views)10/21/2021 3:05 pm CLINICAL HISTORY: Anemia COMPARISON: 2018 FINDINGS: The lungs appear clear of acute infiltrate. The heart is normal size IMPRESSION: No acute abnormalities displayed
[2021-10-21 15:26] LABS: Absolute Lymphocytes (CBC) 1.5 K/uL (0.7-4.9); Lymphocytes % 20.3 % (15.3-44.8); MCV 94.4 fL (80-100); MPV 8.2 fL (7.6-11.3); RBC Red Blood Cell Count 2.44 M/uL (4.33-5.43)
[2021-10-21 16:05] LABS: Ferritin 15.5 ng/mL (26-388); Potassium 3.6 mmol/L (3.5-5.1)
[2021-10-21] MEDS: INSULIN -REGULAR HUMAN 50 UNIT/0.5 ML ML SQ SCH ×2 (16:30→21:00)
[2021-10-21 17:18] LABS: Urine Appearance Clear (Clear); Urine Bilirubin Negative (Negative); Urine Blood Negative (Negative); Urine Color Yellow (Yellow); Urine Glucose 3+ (Negative); Urine Protein Negative (Negative); Urine Specific Gravity 1.015 (1.005-1.030); Urine Urobilinogen 0.2 mg/dL (0.2-1.0)
[2021-10-21 17:22] LABS: Urine Microscopic Reflex NO UMIC
[2021-10-21] MEDS ORDERED: ATORVASTATIN 40 MG TAB PO SCH (21:00)
[2021-10-21] MEDS ORDERED: NA CHLORIDE 0.9% 250 ML ONE (21:35)
[2021-10-22 06:25] LABS: Hematocrit 24.1 % (39.6-49.0)
[2021-10-22] MEDS ORDERED: LEVOTHYROXINE SOD 0.05 MG TABLET PO SCH (06:30)
[2021-10-22] MEDS: INSULIN -REGULAR HUMAN 50 UNIT/0.5 ML ML SQ SCH ×2 (07:30→11:30)
[2021-10-22] MEDS ORDERED: GLIMEPIRIDE 2 MG TABLET PO SCH (08:00)
[2021-10-22 08:59] VITALS: O2SAT 96
[2021-10-22] MEDS ORDERED: Dapagliflozin Propanediol [Farxiga] 10 MG Tablet PO SCH (09:00)
[2021-10-22] MEDS ORDERED: PIOGLITAZONE 15 MG TAB PO SCH (09:00)
[2021-10-22] MEDS ORDERED: FENOFIBRATE MICRONIZED PO SCH (09:00)
[2021-10-22] MEDS ORDERED: METOPROLOL XL 50 MG TAB PO SCH (09:00)
[2021-10-22] MEDS ORDERED: allopurinoL 300 MG TAB PO SCH (09:00)
[2021-10-22] MEDS ORDERED: NA CHLORIDE 0.9% 250 ML ONE (10:07)
[2021-10-22 12:52] VITALS: BP 115/60; TEMP 97.8
--- NOTE | 2021-10-22 13:30 | P.DS ---
Admission Date: 10/21/21 Discharge Date: 10/22/21 Disposition: ROUTINE DISCHARGE Discharge Condition: FAIR Brief History of Present Illness: HAS CHRONIC LOWER GI BLEEDING FROM HEMORROIDES. HE WAS ORTHOSTATIC WITH HG OF 7.3. AFTER TO UNITS OF BLOOD IT WENT UP ON LY 1 GM. HE HAS APT WITH GI DOCTOR. THERE IS NO GI DOCTOR CURRICULUM MANAGER AT [facility]. ONCE HG COMES UP TO 9 AFTER 3RD UNIT HE WILL GO HOME. HE IS STABLE. Vital Signs/Physical Exam: Temp Pulse Resp BP Pulse Ox 97.8 F 70 18 115/60 100 10/22/21 12:00 10/22/21 12:00 10/22/21 12:00 10/22/21 12:00 10/22/21 12:00 Laboratory Data at Discharge: WBC 7.4 K/uL (4.3-10.9) 10/21/21 15:03 Hgb 8.3 g/dL (13.6-17.9) L 10/22/21 06:10 Hct 24.1 % (39.6-49.0) L 10/22/21 06:10 Plt Count 262 K/uL (152-406) 10/21/21 15:03 Sodium 142 mmol/L (136-145) 10/21/21 15:03 Potassium 3.6 mmol/L (3.5-5.1) 10/21/21 15:03 BUN 26 mg/dL (7-18) H 10/21/21 15:03 Creatinine 1.83 mg/dL (0.55-1.3) H 10/21/21 15:03 Glucose 104 mg/dL (74-106) 10/21/21 15:03 Home Medications: Atorvastatin Calcium [Lipitor*] 40 mg PO BEDTIME 12/26/17 Allopurinol 1 tab PO DAILY 10/21/21 Dapagliflozin Propanediol [Farxiga] 20 mg PO DAILY 10/21/21 Fenofibrate,Micronized [Fenofibrate] 5 mg PO DAILY 10/21/21 Glimepiride 1 tab PO DAILY 10/21/21 Levothyroxine Sodium [Levothyroxine] 1 tab PO DAILY 10/21/21 Metoprolol Succinate [Toprol Xl*] 1 tab PO DAILY 10/21/21 Pioglitazone [Actos*] 1 tab PO DAILY 10/21/21 Followup: Sea Cardoza MD [ACTIVE - CAN ADMIT] -
--- NOTE | 2021-10-25 14:01 | EKG ---
Test Date: 2021-10-21 Test Time: 14:06:58 Can Doffer: DAPHNE MEASUREMENT RESULTS: Intervals: Rate: 75 [place]: 162 QRSD: 94 QT: 424 QTc: 473 [place]: P: 45 [place]: 162 QRS: 54 T: 33 INTERPRETIVE STATEMENTS: Normal sinus rhythm Normal ECG Compared to ECG 12/25/2017 09:19:11 No significant changes Electronically Signed On 10-25-21 13:52:52 CDT by Meng Palacios
== END 2021-10-22 15:20 | disposition home or self-care (01) ==
LOC: 2ND 12:52
PROVIDERS: ADMIT Internal Medicine; ATTEND Internal Medicine
DX: K92.2 Gastrointestinal hemorrhage, unspecified (principal); K64.9 Unspecified hemorrhoids; Z79.899 Other long term (current) drug therapy; Z20.822 Contact with and (suspected) exposure to COVID-19
CPT/HCPCS: 36430; 93005; 85025; 80048; 36415 ×2; 86900; 86850; 86901; 82947 ×4; 85018 ×2; 85014 ×2; 81003; 82728; 71046; U0003; G0378 ×2; P9016 ×3; J7050 ×2